=== PATIENT | female | born 1975 | race Caucasian/White ===

== ENCOUNTER → 2018-12-25 | Outpatient (CLI) | payer OTHER ==
[~2018-12-25] MED LIST: Naprosyn500 MG PO
== END | disposition home or self-care (01) ==
LOC: LAB SHORT 08:47 → LAB EV 08:47
DX: R10.2 Pelvic and perineal pain (principal)
CPT/HCPCS: 87070; 87077; 87186; 87205

== ENCOUNTER → 2022-06-10 | Outpatient (CLI) | payer BC | END | disposition home or self-care (01) | LOC: LAB SHORT 14:34 → LAB 14:34 | DX: M79.641 Pain in right hand (principal) | CPT/HCPCS: 84550 ==